=== PATIENT | male | born 1980 | race Caucasian/White ===

== ENCOUNTER 2024-12-01 20:00 | Inpatient (IN) | payer OTHER ==
[~2024-12-01] VITALS: Ht 170.2 cm; Wt 92.8 kg
[2024-12-01 21:49] LABS: PLATELET COUNT (AUTO) 68 K/uL (150-450); RED BLOOD CELL COUNT(AUTO) 3.78 MIL/uL (4.50-5.90); RED CELL DISTRIBUTION WIDTH 15.8 % (11.5-14.5); WHITE BLOOD COUNT (AUTO) 11.1 K/uL (4.5-11.0)
[2024-12-01 21:53] LABS: CALCIUM, TOTAL 8.1 mg/dL (8.8-10.5); CREATININE 0.76 mg/dL (0.60-1.30); GLOMERULAR FILTR. RATE CALC > 60 mL/min (>60); GLUCOSE,RANDOM 137 mg/dL (70-110); SODIUM SERUM 131 mmol/L (136-145); UREA NITROGEN, BLOOD 13 mg/dL (7-18)
[2024-12-01] MEDS ORDERED: 0.9% SODIUM CHLORIDE 10 ML SYRINGE IVP PRN (23:00)
[2024-12-01] MEDS: ACETAMINOPHEN 500 MG TABLET PO ONE (23:11)
[2024-12-01] MEDS: SODIUM CHLORIDE 0.9% 2,150 ML IV ONE (23:12)
[2024-12-01] MEDS ORDERED: KETOROLAC TROMETHAMINE 30 MG/ML VIAL IVP ONE (23:15)
[2024-12-01] MEDS: CefTRIAXone 1 GM/DEXTROSE 50 ML IV ONE (23:20)
[2024-12-01] MEDS: KETOROLAC TROMETHAMINE 15 MG/ML VIAL IVP ONE (23:21)
[2024-12-01] MEDS ORDERED: IOHEXOL 300 MG/ML 100 ML VIAL ONE (23:33)
[2024-12-01 23:41] LABS: ASPARTATE AMINOTRANSFERASE 55 U/L (15-37); TOTAL PROTEIN, SERUM 7.0 g/dL (6.4-8.2)
[2024-12-01] MEDS ORDERED: MAGNESIUM HYDROXIDE SUSPENSION 30 ML UDCUP PO PRN (23:45)
[2024-12-01] MEDS ORDERED: ONDANSETRON HCL 4 MG/2 ML VIAL IVP PRN (23:45)
[2024-12-01 23:53] LABS: LACTIC ACID 2.3 mmol/L (0.4-2.0)
[2024-12-01 23:59] LABS: APPEARANCE,URINE CLEAR (CLEAR); GLUCOSE, URINE (UA) TRACE mg/dL (NEGATIVE); LEUKOCYTE ESTERASE ,URINE NEGATIVE (NEGATIVE); NITRATE,URINE NEGATIVE (NEGATIVE); OCCULT BLOOD,URINE TRACE (NEGATIVE); SPECIFIC GRAVITIY, URINE 1.028 (1.003-1.030)
[2024-12-02 00:01] LABS: SQUAMOUS EPITHELIAL CELL,UR Few /LPF (None Seen)
[2024-12-02] MEDS: VANCOMYCIN 1.5 GM/WATER(PEG) 300 ML IV ONE (00:33)
[2024-12-02] MEDS: SODIUM CHLORIDE 0.9% 1,000 ML IV ONE (00:33)
[2024-12-02] MEDS: HEPARIN SODIUM,PORCINE 5,000 UNITS/ML VIAL SQ SCH (00:35)
[2024-12-02] MEDS: IBUPROFEN 400 MG TABLET PO ONE (03:15)
[2024-12-02] MEDS: OxyCODONE HCL/ACETAMINOPHEN 5-325 MG TABLET PO PRN (07:48)
[2024-12-02] MEDS: VANCOMYCIN 1GM/WATER(PEG/NADA) 200 ML IV SCH (07:48)
[2024-12-02] MEDS: ACETAMINOPHEN 325 MG TABLET PO PRN (07:49)
[2024-12-02] MEDS: DOCUSATE SODIUM 100 MG CAPSULE PO SCH (09:00)
[2024-12-02] MEDS: FAMOTIDINE 20 MG TABLET PO SCH (09:00)
[2024-12-02 09:40] VITALS: BP 111/78; PULSE 112; RESP 20; TEMP 102.1; O2SAT 96
[2024-12-02 11:54] VITALS: BP 99/74; PULSE 110; RESP 18; TEMP 101.8; O2SAT 96
[2024-12-02] MEDS: SODIUM CHLORIDE 0.9% 1,000 ML IV SCH (13:37)
[2024-12-02] MEDS: PIPERACILLIN/TAZO 3.375 GM/D5W 50 ML IV SCH (13:38)
[2024-12-02 16:40] VITALS: BP 91/62; PULSE 93; RESP 18; TEMP 100.8; O2SAT 100
[2024-12-02 20:26] VITALS: BP 96/61; PULSE 79; RESP 18; TEMP 98.2; O2SAT 98
[2024-12-02] MEDS: ZOLPIDEM TARTRATE 5 MG TABLET PO PRN (20:26)
[2024-12-02] MEDS ORDERED: CefTRIAXone 1 GM/DEXTROSE 50 ML IV SCH (22:00)
[2024-12-03 00:30] VITALS: BP 92/65; PULSE 74; RESP 18; TEMP 97.7; O2SAT 98
[2024-12-03 05:45] VITALS: BP 103/65; PULSE 81; RESP 20; TEMP 97.7; O2SAT 99
[2024-12-03 06:12] LABS: PLATELET COUNT (AUTO) 48 K/uL (150-450); RED BLOOD CELL COUNT(AUTO) 3.21 MIL/uL (4.50-5.90); RED CELL DISTRIBUTION WIDTH 15.8 % (11.5-14.5); WHITE BLOOD COUNT (AUTO) 7.9 K/uL (4.5-11.0)
[2024-12-03 06:24] LABS: CALCIUM, TOTAL 7.6 mg/dL (8.8-10.5); CREATININE 0.95 mg/dL (0.60-1.30); GLOMERULAR FILTR. RATE CALC > 60 mL/min (>60); GLUCOSE,RANDOM 93 mg/dL (70-110); SODIUM SERUM 133 mmol/L (136-145); UREA NITROGEN, BLOOD 18 mg/dL (7-18)
[2024-12-03 08:47] VITALS: BP 111/70; PULSE 94; RESP 18; TEMP 98.2; O2SAT 97
[2024-12-03 12:01] VITALS: BP 109/66; PULSE 97; RESP 17; TEMP 98.4; O2SAT 98
[2024-12-03 16:17] VITALS: BP 122/73; PULSE 100; RESP 17; TEMP 99.1; O2SAT 99
[2024-12-03 20:07] VITALS: BP 128/81; PULSE 95; RESP 18; TEMP 99.3; O2SAT 97
[2024-12-04] VITALS (7 sets, daily range): BP systolic 104–136; BP diastolic 72–85; PULSE 83–99; RESP 18–20; TEMP 98.6–100; O2SAT 96–99
[2024-12-04 07:05] LABS: PLATELET COUNT (AUTO) 60 K/uL (150-450); RED BLOOD CELL COUNT(AUTO) 3.18 MIL/uL (4.50-5.90); RED CELL DISTRIBUTION WIDTH 15.7 % (11.5-14.5); WHITE BLOOD COUNT (AUTO) 7.3 K/uL (4.5-11.0)
[2024-12-04 07:21] LABS: CALCIUM, TOTAL 7.6 mg/dL (8.8-10.5); CREATININE 0.72 mg/dL (0.60-1.30); GLOMERULAR FILTR. RATE CALC > 60 mL/min (>60); GLUCOSE,RANDOM 83 mg/dL (70-110); SODIUM SERUM 132 mmol/L (136-145); UREA NITROGEN, BLOOD 8 mg/dL (7-18)
[2024-12-04] MEDS: POTASSIUM CHLORIDE 20 MEQ ER TABLET PO PRN (10:05)
[2024-12-05 04:37] VITALS: BP 125/87; PULSE 79; RESP 20; TEMP 98.2; O2SAT 97
[2024-12-05 07:22] LABS: PLATELET COUNT (AUTO) 63 K/uL (150-450); RED BLOOD CELL COUNT(AUTO) 3.05 MIL/uL (4.50-5.90); RED CELL DISTRIBUTION WIDTH 15.6 % (11.5-14.5); WHITE BLOOD COUNT (AUTO) 5.9 K/uL (4.5-11.0)
[2024-12-05 07:24] LABS: CALCIUM, TOTAL 7.1 mg/dL (8.8-10.5); CREATININE 0.62 mg/dL (0.60-1.30); GLOMERULAR FILTR. RATE CALC > 60 mL/min (>60); GLUCOSE,RANDOM 97 mg/dL (70-110); SODIUM SERUM 136 mmol/L (136-145); UREA NITROGEN, BLOOD 6 mg/dL (7-18)
[2024-12-05] MEDS ORDERED: SODIUM CHLORIDE 0.9% 250 ML IV ONE (07:52)
[2024-12-05] MEDS: POTASSIUM CHL 10 MEQ/WATER 50 ML IV PRN (07:55)
[2024-12-05 08:14] VITALS: BP 118/90; PULSE 85; RESP 20; TEMP 98.2; O2SAT 96
[2024-12-05] MEDS: POTASSIUM CHLORIDE 20 MEQ ER TABLET PO ONE ×2 (09:02→12:16)
[2024-12-05 20:00] VITALS: BP 119/87; PULSE 85; RESP 18; TEMP 99.3; O2SAT 98
[2024-12-05] MEDS: SULFAMETHOX/TRIMETH DS 800-160 MG/TABLET PO SCH (20:02)
[2024-12-05] MEDS: MELATONIN 5 MG TABLET PO PRN (21:15)
[2024-12-06 04:00] VITALS: BP 122/88; PULSE 81; RESP 18; TEMP 99; O2SAT 97
[2024-12-06 08:00] VITALS: BP 129/89; PULSE 69; RESP 20; TEMP 97.9; O2SAT 100
[2024-12-06] MEDS ORDERED: PARO-38 PO (15:37)
[2024-12-06] MEDS ORDERED: ACET-2247 PO (15:38)
[2024-12-06] MEDS ORDERED: SULF-261 PO (15:38)
[2024-12-06] MEDS ORDERED: MELA5TAB40 PO (15:39)
[2024-12-06 16:00] VITALS: BP 122/86; PULSE 68; RESP 18; TEMP 98.4; O2SAT 100
[2024-12-06 19:31] VITALS: BP 124/86; PULSE 67; RESP 18; TEMP 98.6; O2SAT 99
[2024-12-07 04:11] VITALS: BP 117/85; PULSE 62; RESP 18; TEMP 98.6; O2SAT 98
[2024-12-07 08:24] VITALS: BP 117/85; PULSE 77; RESP 20; TEMP 98.6; O2SAT 97
[2024-12-07 09:38] LABS: CALCIUM, TOTAL 7.4 mg/dL (8.8-10.5); CREATININE 0.51 mg/dL (0.60-1.30); GLOMERULAR FILTR. RATE CALC > 60 mL/min (>60); GLUCOSE,RANDOM 111 mg/dL (70-110); SODIUM SERUM 137 mmol/L (136-145); UREA NITROGEN, BLOOD 5 mg/dL (7-18)
== END 2024-12-07 14:26 | DRG 872 ==
LOC: EMS 20:03 → EDH 23:45 → 5S 12-02 09:26 → 6S 12-04 13:20 → 4S 12-06 18:44
PROVIDERS: ADMIT Internal Medicine; ATTEND Internal Medicine
DX: A41.89 Other specified sepsis (principal); L03.314 Cellulitis of groin; L03.315 Cellulitis of perineum; N49.2 Inflammatory disorders of scrotum; N43.3 Hydrocele, unspecified; D69.6 Thrombocytopenia, unspecified; K74.60 Unspecified cirrhosis of liver; B19.20 Unspecified viral hepatitis C without hepatic coma; E87.6 Hypokalemia; Z79.899 Other long term (current) drug therapy
CPT/HCPCS: 74177; 80048; 80076; 80202; 81001; 83605; 83880; 84132; 84145; 85025; 85610; 87040; 93005; 99285; G0378; J0696; J1644; J1885; J2543; J3480; J7030; J7050; Q9967

== ENCOUNTER 2024-12-11 07:51 | Inpatient (IN) | payer OTHER ==
[~2024-12-11] VITALS: Ht 167.6 cm; Wt 84.1 kg
[~2024-12-11 07:51] MED LIST: ACET-2247 PO; MELA5TAB40 PO; PARO-38 PO; SULF-261 PO
[2024-12-11] MEDS: SODIUM CHLORIDE 0.9% 1,000 ML IV ONE (09:25)
[2024-12-11 09:37] LABS: PLATELET COUNT (AUTO) 94 K/uL (150-450); RED BLOOD CELL COUNT(AUTO) 2.97 MIL/uL (4.50-5.90); RED CELL DISTRIBUTION WIDTH 16.6 % (11.5-14.5); WHITE BLOOD COUNT (AUTO) 2.9 K/uL (4.5-11.0)
[2024-12-11 09:44] LABS: CALCIUM, TOTAL 7.4 mg/dL (8.8-10.5); CREATININE 0.79 mg/dL (0.60-1.30); GLOMERULAR FILTR. RATE CALC > 60 mL/min (>60); GLUCOSE,RANDOM 109 mg/dL (70-110); SODIUM SERUM 138 mmol/L (136-145); UREA NITROGEN, BLOOD 8 mg/dL (7-18)
[2024-12-11 09:50] LABS: ASPARTATE AMINOTRANSFERASE 58.0 U/L (15-37); TOTAL PROTEIN, SERUM 5.7 g/dL (6.4-8.2)
[2024-12-11] MEDS ORDERED: IOHEXOL 350 MG/ML 100 ML VIAL ONE (09:50)
[2024-12-11] MEDS ORDERED: SODIUM CHLORIDE 0.9% 100 ML ONE (09:50)
[2024-12-11 09:55] LABS: LACTIC ACID 1.1 mmol/L (0.4-2.0)
[2024-12-11 09:57] LABS: TROPONIN I-HIGH SENSITIVITY 5 ng/L (<76)
[2024-12-11] MEDS: VANCOMYCIN 1.25 GM/WATER(PEG) 250 ML IV ONE (11:41)
[2024-12-11] MEDS: MORPHINE SULFATE 4 MG/ML SYRINGE IVP ONE (12:53)
[2024-12-11] MEDS ORDERED: MAGNESIUM HYDROXIDE SUSPENSION 30 ML UDCUP PO PRN (15:45)
[2024-12-11] MEDS ORDERED: BISACODYL 10 MG RECTAL RECTAL SUPPOSITORY PR PRN (15:45)
[2024-12-11] MEDS ORDERED: MORPHINE SULFATE 2 MG/ML SYRINGE IVP PRN (15:45)
[2024-12-11] MEDS ORDERED: ONDANSETRON HCL 4 MG/2 ML VIAL IVP PRN (15:45)
[2024-12-11] MEDS ORDERED: VANCOMYCIN 1.25 GM/WATER(PEG) 250 ML IV SCH (16:00)
[2024-12-11] MEDS ORDERED: SODIUM CHLORIDE 0.9% 500 ML IV ONE (17:47)
[2024-12-11] MEDS: VANCOMYCIN 1GM/WATER(PEG/NADA) 200 ML IV SCH (17:50)
[2024-12-11] MEDS: HEPARIN SODIUM,PORCINE 5,000 UNITS/ML VIAL SQ SCH (17:51)
[2024-12-11] MEDS: DOXYCYCLINE HYCLATE 100 MG TABLET PO SCH (20:30)
[2024-12-11] MEDS: DOCUSATE SODIUM 100 MG CAPSULE PO SCH (20:31)
[2024-12-11 20:36] VITALS: BP 133/95; PULSE 87; RESP 18; TEMP 98.1; O2SAT 97
[2024-12-11] MEDS: MORPHINE SULFATE 4 MG/ML SYRINGE IVP PRN (21:08)
[2024-12-12] MEDS: ACETAMINOPHEN 325 MG TABLET PO PRN (00:17)
[2024-12-12 05:52] LABS: APPEARANCE,URINE CLEAR (CLEAR); GLUCOSE, URINE (UA) NEGATIVE (NEGATIVE); LEUKOCYTE ESTERASE ,URINE NEGATIVE (NEGATIVE); NITRATE,URINE NEGATIVE (NEGATIVE); OCCULT BLOOD,URINE NEGATIVE (NEGATIVE); SPECIFIC GRAVITIY, URINE 1.017 (1.003-1.030)
[2024-12-12 06:20] VITALS: BP 123/87; PULSE 76; RESP 18; TEMP 98.1; O2SAT 97
[2024-12-12 08:04] LABS: PLATELET COUNT (AUTO) 91 K/uL (150-450); RED BLOOD CELL COUNT(AUTO) 2.96 MIL/uL (4.50-5.90); RED CELL DISTRIBUTION WIDTH 15.8 % (11.5-14.5); WHITE BLOOD COUNT (AUTO) 2.2 K/uL (4.5-11.0)
[2024-12-12] MEDS: PANTOPRAZOLE SODIUM 40 MG DR TABLET PO SCH (08:05)
[2024-12-12 08:19] LABS: CALCIUM, TOTAL 7.5 mg/dL (8.8-10.5); CREATININE 0.54 mg/dL (0.60-1.30); GLOMERULAR FILTR. RATE CALC > 60 mL/min (>60); GLUCOSE,RANDOM 79 mg/dL (70-110); SODIUM SERUM 138 mmol/L (136-145); UREA NITROGEN, BLOOD 8 mg/dL (7-18)
[2024-12-12 08:40] VITALS: BP 119/88; PULSE 79; RESP 18; TEMP 98.1; O2SAT 98
[2024-12-12 20:20] VITALS: BP 118/75; PULSE 89; RESP 18; TEMP 98.2; O2SAT 99
[2024-12-13 05:02] VITALS: BP 125/81; PULSE 90; RESP 18; TEMP 98.6; O2SAT 96
[2024-12-13 07:09] LABS: PLATELET COUNT (AUTO) 92 K/uL (150-450); RED BLOOD CELL COUNT(AUTO) 3.07 MIL/uL (4.50-5.90); RED CELL DISTRIBUTION WIDTH 16.1 % (11.5-14.5); WHITE BLOOD COUNT (AUTO) 2.9 K/uL (4.5-11.0)
[2024-12-13 07:18] LABS: CALCIUM, TOTAL 7.8 mg/dL (8.8-10.5); CREATININE 0.51 mg/dL (0.60-1.30); GLOMERULAR FILTR. RATE CALC > 60 mL/min (>60); GLUCOSE,RANDOM 101 mg/dL (70-110); SODIUM SERUM 137 mmol/L (136-145); UREA NITROGEN, BLOOD 6 mg/dL (7-18)
[2024-12-13 09:15] VITALS: BP 119/83; PULSE 82; RESP 17; TEMP 98.2; O2SAT 97
[2024-12-13 16:50] VITALS: BP 122/85; PULSE 84; RESP 17; TEMP 98.4; O2SAT 97
[2024-12-13 19:47] VITALS: BP 105/69; PULSE 89; RESP 18; TEMP 98.1; O2SAT 97
[2024-12-13] MEDS: ZOLPIDEM TARTRATE 5 MG TABLET PO PRN (21:09)
[2024-12-14 00:14] VITALS: BP 105/78; PULSE 86; RESP 18; TEMP 98.1; O2SAT 99
[2024-12-14 05:33] VITALS: BP 108/70; PULSE 87; RESP 18; TEMP 98.1; O2SAT 97
[2024-12-14 06:10] LABS: PLATELET COUNT (AUTO)-OB 100 K/uL (150-450); RED BLOOD CELL COUNT(AUTO) 2.93 MIL/uL (4.50-5.90); RED CELL DISTRIBUTION WIDTH 16.4 % (11.5-14.5); WHITE BLOOD COUNT (AUTO) 3.2 K/uL (4.5-11.0)
[2024-12-14 06:32] LABS: CALCIUM, TOTAL 7.9 mg/dL (8.8-10.5); CREATININE 0.50 mg/dL (0.60-1.30); GLOMERULAR FILTR. RATE CALC > 60 mL/min (>60); GLUCOSE,RANDOM 82 mg/dL (70-110); SODIUM SERUM 140 mmol/L (136-145); UREA NITROGEN, BLOOD 7 mg/dL (7-18)
[2024-12-14 09:25] VITALS: BP 116/84; PULSE 80; RESP 18; TEMP 98.1; O2SAT 97
[2024-12-14] MEDS ORDERED: DOXY-354 PO (14:14)
[2024-12-14] MEDS ORDERED: PANT-31 PO (14:15)
[2024-12-14] MEDS ORDERED: CEPH-558 PO (14:18)
[2024-12-14 20:00] VITALS: BP 132/77; PULSE 88; RESP 18; TEMP 98.1; O2SAT 98
[2024-12-15 04:00] VITALS: BP 128/82; PULSE 80; RESP 18; TEMP 98.2; O2SAT 96
[2024-12-15 07:10] LABS: CALCIUM, TOTAL 7.8 mg/dL (8.8-10.5); CREATININE 0.54 mg/dL (0.60-1.30); GLOMERULAR FILTR. RATE CALC > 60 mL/min (>60); GLUCOSE,RANDOM 99 mg/dL (70-110); SODIUM SERUM 139 mmol/L (136-145); UREA NITROGEN, BLOOD 8 mg/dL (7-18)
[2024-12-15 07:47] VITALS: BP 118/88; PULSE 70; RESP 18; TEMP 97.9; O2SAT 98
[2024-12-15] MEDS: HYDROCODONE/ACETAMINOPHEN 5-325 MG TABLET PO PRN (17:29)
[2024-12-15 20:20] VITALS: BP 117/76; PULSE 77; RESP 18; TEMP 98.2; O2SAT 97
[2024-12-16 05:06] VITALS: BP 103/69; PULSE 85; RESP 18; TEMP 97.8; O2SAT 98
[2024-12-16 06:01] LABS: CALCIUM, TOTAL 7.9 mg/dL (8.8-10.5); CREATININE 0.52 mg/dL (0.60-1.30); GLOMERULAR FILTR. RATE CALC > 60 mL/min (>60); GLUCOSE,RANDOM 82 mg/dL (70-110); SODIUM SERUM 139 mmol/L (136-145); UREA NITROGEN, BLOOD 8 mg/dL (7-18)
[2024-12-16 09:04] VITALS: BP 110/76; PULSE 69; RESP 18; TEMP 98; O2SAT 98
[2024-12-16 11:40] VITALS: BP 120/84; PULSE 100; RESP 18; TEMP 98.5; O2SAT 97
== END 2024-12-16 11:45 | DRG 603 ==
LOC: EMS 07:57 → EDH 12:59 → 6N 15:20 → 4S 12-13 15:25 → UNDODISIN 12-16 11:45
PROVIDERS: ADMIT Internal Medicine; ATTEND Internal Medicine
DX: L03.314 Cellulitis of groin (principal); D61.818 Other pancytopenia; K76.6 Portal hypertension; L03.116 Cellulitis of left lower limb; B19.20 Unspecified viral hepatitis C without hepatic coma; N43.3 Hydrocele, unspecified; I86.1 Scrotal varices; F12.90 Cannabis use, unspecified, uncomplicated; K70.30 Alcoholic cirrhosis of liver without ascites
CPT/HCPCS: 71045; 74177; 76870; 80048; 80076; 80202; 81003; 83605; 83690; 83735; 83880; 84145; 84484; 85025; 85610; 87040; 87340; 96361; 96365; 96375; 99285; G0378; J1644; J2270; J7040; J7050; 36415-L1; 36415-TC